=== PATIENT | female | born 1960 | race Caucasian/White ===

== ENCOUNTER 2020-05-09 17:09 | Emergency (ER) | payer SELFPAY ==
[2020-05-09] MEDS ORDERED: Sodium Chloride 0.9% 10 ML Syringe FLUSH PRN (17:11)
[2020-05-09] MEDS ORDERED: Sodium Chloride 0.9% 2.5 ML Syringe FLUSH PRN (17:11)
[2020-05-09] MEDS ORDERED: Sodium Chloride 0.9% 1,000 ML IV ONE (17:13)
[2020-05-09] MEDS ORDERED: fentaNYL 50 MCG/ML SDV IVPUSH ONE ×2 (17:22→19:29)
--- NOTE | 2020-05-09 17:23 | EDM.PDOC ---
ED HPI GENERAL MEDICAL PROBLEM - General Chief Complaint: Cardiovascular Problem Stated Complaint: EMS ARRIVAL - CHEST PAIN Time Seen by Provider: 05/09/20 17:11 - History of Present Illness INITIAL COMMENTS - FREE TEXT/NARRATIVE: History of present illness: 59-year-old female brought by EMS due to chest pain. Apparently the patient just had her car repaired when the industrial equipment mechanic noticed that she started to somewhat slumped over and complained of chest pain. She had no loss of consciousness or lack of responsiveness. They called 911. When EMS arrived she was hypotensive in the 60s systolic and bradycardic in the 40s. They gave her atropine and IV fluids and her heart rate and blood pressure improved to the 120s and heart rate in the 70s. Patient denies any history of cardiac disease or IN. Patient was diaphoretic for EMS and is still diaphoretic. She is moaning in pain and appears in distress. She appears pale. She reports the pain is radiating from the chest into the back and abdomen. No fever, chills or difficulty breathing/chest pain. Patient is reporting that she is in pain and would like to stand up. Review of systems: As per history of present illness and below otherwise all systems reviewed and negative. Past medical history: As per history of present illness and as reviewed below otherwise noncontributory. Surgical history: As per history of present illness and as reviewed below otherwise noncontributory. Social history: No reported history of drug or alcohol abuse. Family history: As per history of present illness and as reviewed below otherwise noncontributory. Physical exam: General: Pale, diaphoretic, in distress due to pain HEENT: Atraumatic, normocephalic, mucous membranes moist Neck: supple, nontender, trachea midline. Lungs: No respiratory distress. Heart: RRR in the 60s. Abdomen: Soft, nondistended, nontender. Pelvis: Stable nontender. Extremities: Atraumatic. Neurovascularly unremarkable. Neuro: Pale, diaphoretic, appears occasionally confused and less responsive but does then return to clear orientation and alertness and able to answer questions. Neuro Exam nonfocal. Psych: Appears anxious Skin: Diaphoretic and pale Diagnostics: [] Therapeutics: [] MDM: No prior cardiac history complaining of chest pain, abdominal pain and back pain. EKG with T inversion in inferior leads, no STEMI. Concern for possible dissection given patient's varying locations of pain. Patient taken immediately to CT. Impression: [] Plan: [] Definitive disposition and diagnosis as appropriate pending reevaluation and review of above. Back Pain Score (Numeric/FACES): 10 - Related Data Allergies Allergy/AdvReac Type Severity Reaction Status Date / Time Dairy Products Allergy Unknown Other Verified 05/09/20 18:28 ED ROS GENERAL - Review of Systems Review Of Systems: See Below (See dictation) ED EXAM, GENERAL - Physical Exam Exam: See Below (See dictation) EKG INTERPRETATION EKG Interpretation Comments: EKG performed today at 5:10 PM, rate 65, sinus, left atrial enlargement, lead 3 T inversions. No STEMI. Interpreted by me. Course - Vital Signs Last Recorded V/S: Last Vital Signs Temp 97.8 F 05/09/20 17:24 Pulse 59 L 05/09/20 19:05 Resp 22 H 05/09/20 17:24 BP 139/98 H 05/09/20 19:05 Pulse Ox 97 05/09/20 19:05 - Orders/Labs/Meds Orders: Active Orders 24 hr Category Date Time Status EKG Documentation Completion [RC] STAT Care 05/09/20 17:12 Active Ang Abdomen [CT] Stat Exams 05/09/20 17:12 Taken Ang Chest [CT] Stat Exams 05/09/20 17:12 Taken Sodium Chloride 0.9% [Saline Flush] Med 05/09/20 17:11 Active 10 ml FLUSH ASDIRECTED PRN Sodium Chloride 0.9% [Saline Flush] Med 05/09/20 17:11 Active 2.5 ml FLUSH ASDIRECTED PRN Saline Lock Insert [OM.PC] Stat Oth 05/09/20 17:11 Ordered Medication Orders Sodium Chloride (Saline Flush) 10 ml FLUSH ASDIRECTED PRN PRN Reason: Keep Vein Open Sodium Chloride (Saline Flush) 2.5 ml FLUSH ASDIRECTED PRN PRN Reason: Keep Vein Open Labs: Laboratory Tests 05/09/20 05/09/20 05/09/20 Range/Units 17:10 17:10 17:10 WBC 10.23 (4.0-11.0) K/uL RBC 5.28 (4.30-5.90) M/uL Hgb 16.0 (12.0-16.0) g/dL Hct 47.5 H (36.0-46.0) % MCV 90.0 (80.0-98.0) fL MCH 30.3 (27.0-32.0) pg MCHC 33.7 (31.0-37.0) g/dL RDW Std Deviation 46.6 (28.0-62.0) fl RDW Coeff of Jaki 14 (11.0-15.0) % Plt Count 210 (150-400) K/uL MPV 10.80 (7.40-12.00) fL Neut % (Auto) 48.9 (48.0-80.0) % Lymph % (Auto) 41.1 H (16.0-40.0) % [place] % (Auto) 8.3 (0.0-15.0) % Eos % (Auto) 1.4 (0.0-7.0) % Baso % (Auto) 0.3 (0.0-1.5) % Neut # (Auto) 5.0 (1.4-5.7) K/uL Lymph # (Auto) 4.2 H (0.6-2.4) K/uL [place] # (Auto) 0.9 H (0.0-0.8) K/uL Eos # (Auto) 0.1 (0.0-0.7) K/uL Baso # (Auto) 0.0 (0.0-0.1) K/uL Nucleated RBC % 0.0 /100WBC Nucleated RBCs # 0 K/uL INR APTT (18.6-31.3) SEC Sodium 143 (136-145) mmol/L Potassium 3.6 (3.5-5.1) mmol/L Chloride 106 (98-107) mmol/L Carbon Dioxide 19.3 L (21.0-32.0) mmol/L BUN 15 (7.0-18.0) mg/dL Creatinine 1.0 (0.6-1.0) mg/dL Est Cr Clr Drug Dosing 56.71 mL/min Estimated GFR (MDRD) 56.7 ml/min Glucose 114 H (74-106) mg/dL Calcium 8.9 (8.5-10.1) mg/dL Total Bilirubin 0.3 (0.2-1.0) mg/dL AST 22 (15-37) IU/L ALT 21 (14-63) IU/L Alkaline Phosphatase 82 (46-116) U/L Troponin I < 0.050 (0.000-0.056) ng/mL B-Natriuretic Peptide 15 (<100) PG/ML Total Protein 7.2 (6.4-8.2) g/dL Albumin 4.0 (3.4-5.0) g/dL Globulin 3.2 (2.6-4.0) g/dL Albumin/Globulin Ratio 1.3 (0.9-1.6) Lipase 148 (73-393) U/L Blood Type Antibody Screen 05/09/20 05/09/20 Range/Units 17:10 18:25 WBC (4.0-11.0) K/uL RBC (4.30-5.90) M/uL Hgb (12.0-16.0) g/dL Hct (36.0-46.0) % MCV (80.0-98.0) fL MCH (27.0-32.0) pg MCHC (31.0-37.0) g/dL RDW Std Deviation (28.0-62.0) fl RDW Coeff of Jaki (11.0-15.0) % Plt Count (150-400) K/uL MPV (7.40-12.00) fL Neut % (Auto) (48.0-80.0) % Lymph % (Auto) (16.0-40.0) % [place] % (Auto) (0.0-15.0) % Eos % (Auto) (0.0-7.0) % Baso % (Auto) (0.0-1.5) % Neut # (Auto) (1.4-5.7) K/uL Lymph # (Auto) (0.6-2.4) K/uL [place] # (Auto) (0.0-0.8) K/uL Eos # (Auto) (0.0-0.7) K/uL Baso # (Auto) (0.0-0.1) K/uL Nucleated RBC % /100WBC Nucleated RBCs # K/uL INR 1.01 APTT 23.6 (18.6-31.3) SEC Sodium (136-145) mmol/L Potassium (3.5-5.1) mmol/L Chloride (98-107) mmol/L Carbon Dioxide (21.0-32.0) mmol/L BUN (7.0-18.0) mg/dL Creatinine (0.6-1.0) mg/dL Est Cr Clr Drug Dosing mL/min Estimated GFR (MDRD) ml/min Glucose (74-106) mg/dL Calcium (8.5-10.1) mg/dL Total Bilirubin (0.2-1.0) mg/dL AST (15-37) IU/L ALT (14-63) IU/L Alkaline Phosphatase (46-116) U/L Troponin I (0.000-0.056) ng/mL B-Natriuretic Peptide (<100) PG/ML Total Protein (6.4-8.2) g/dL Albumin (3.4-5.0) g/dL Globulin (2.6-4.0) g/dL Albumin/Globulin Ratio (0.9-1.6) Lipase (73-393) U/L Blood Type A POSITIVE Antibody Screen NEGATIVE Meds: Medications Generic Name Dose Route Start Last Admin Trade Name Freq PRN Reason Stop Dose Admin Sodium Chloride 10 ml 05/09/20 17:11 Saline Flush FLUSH ASDIRECTED PRN Keep Vein Open Sodium Chloride 2.5 ml 05/09/20 17:11 Saline Flush FLUSH ASDIRECTED PRN Keep Vein Open Discontinued Medications Generic Name Dose Route Start Last Admin Trade Name Freq PRN Reason Stop Dose Admin Fentanyl 50 mcg 05/09/20 17:22 05/09/20 17:50 Fentanyl IVPUSH 05/09/20 17:23 50 mcg ONETIME ONE Administration Sodium Chloride 1,000 mls @ 999 mls/hr 05/09/20 17:13 05/09/20 17:51 Normal Saline IV 05/09/20 18:13 999 mls/hr .Bolus ONE Administration Iopamidol 100 ml 05/09/20 18:19 05/09/20 18:20 Isovue-370 (76%) IVPUSH 05/09/20 18:20 100 ml ONETIME STA Administration - Re-Assessments/Exams Free Text/Narrative Re-Assessment/Exam: 05/09/20 17:23 The patient is feeling marginally better. Her coloration is slightly improved. She is still in pain and reports that her back pain is severe and would like to be able to stand. However as she was very hypotensive for EMS I requested that she instead lay flat. Discussed with sow farm barn technician my concern for aortic dissection and need for immediate CT scan deferring labs at this time. 05/09/20 19:09 She was reassessed at 6 PM and 6:33 PM, during both reassessments, she did appear much improved her coloration will continue to be better and her blood pressure was stable. She was able to clarify that she developed pain in the lower sternum that radiated into the back at about the same level. I discussed with the patient concerning findings on CT scan and need for emergent transfer to facility for higher level of care. I discussed with the cardiothoracic surgery, DR Burgos at [facility], in regards to possible transfer there if the facility could accept the patient and has the adequate facilities to care for the patient. He reviewed the images , discussed with cardiac surgery and vascular surgery (DR Cloud and DR Cha), who have all reviewed the images and agree with the patient can be adequately cared for at that facility. Therefore I discussed this with the patient who agrees with this plan. I have also discussed this with the emergency department physician , Dr Lyle at [facility] who accepts the patient. Patient will be transferred via air. 05/09/20 19:28 Patient was reassessed again, she is confused about the diagnosis and was concerned about traveling. I discussed with her the life-threatening nature of aortic aneurysms, potential for aortic dissection, and concern with the intramural hematoma and need for emergent transfer and cardiothoracic/vascular surgeon eval. Voiced understanding at this time again and agrees with the plan. She is still having pain. Her blood pressure is slightly elevated and she feels nauseated. Therefore she will be given pain medications and antiemetics. Departure - Departure Time of Disposition: 19:10 Disposition: DC/Tfer to Acute Hospital 02 Reason for Transfer *Q: Other (Higher level of care, requiring cardiothoracic and vascular surgery) Clinical Impression: Ascending aortic aneurysm, Intramural hematoma of thoracic aorta Referrals: PCP,None [Primary Care Provider] - Forms: ED Department Discharge Critical Care Note - Critical Care Note Total Time (mins): 35 Sepsis Event Note (ED) - Focused Exam Vital Signs: Vital Signs Temp Pulse Resp BP Pulse Ox 05/09/20 19:05 59 L 139/98 H 97 05/09/20 18:39 69 153/116 H 98 05/09/20 17:50 70 129/96 H 100 05/09/20 17:24 97.8 F 65 22 H 167/84 H 91 L - My Orders Last 24 Hours: My Active Orders 05/09/20 17:11 Sodium Chloride 0.9% [Saline Flush] 10 ml FLUSH ASDIRECTED PRN Sodium Chloride 0.9% [Saline Flush] 2.5 ml FLUSH ASDIRECTED PRN Saline Lock Insert [OM.PC] Stat 05/09/20 17:12 EKG Documentation Completion [RC] STAT Ang Abdomen [CT] Stat Ang Chest [CT] Stat - Assessment/Plan Last 24 Hours: My Active Orders 05/09/20 17:11 Sodium Chloride 0.9% [Saline Flush] 10 ml FLUSH ASDIRECTED PRN Sodium Chloride 0.9% [Saline Flush] 2.5 ml FLUSH ASDIRECTED PRN Saline Lock Insert [OM.PC] Stat 05/09/20 17:12 EKG Documentation Completion [RC] STAT Ang Abdomen [CT] Stat Ang Chest [CT] Stat
[2020-05-09 17:45] LABS: BLOOD UREA NITROGEN,BUN 15 mg/dL (7.0-18.0); CARBON DIOXIDE,CO2 19.3 mmol/L (21.0-32.0); CHLORIDE,CL 106 mmol/L (98-107); GLUCOSE RANDOM 114 mg/dL (74-106); LIPASE 148 U/L (73-393); POTASSIUM,K 3.6 mmol/L (3.5-5.1); SODIUM,NA 143 mmol/L (136-145)
--- NOTE | 2020-05-09 17:59 | CR ---
Chest: Portable view of the chest was obtained. Comparison: No previous chest x-ray. Heart size is normal. Tortuous or aneurysmal thoracic aorta is seen. Lungs are clear with no acute parenchymal change. Bony structures shows mild endplate spurring within the spine. Impression: 1. Tortuous or aneurysmal thoracic aorta. 2. Nothing acute is otherwise seen on portable chest x-ray. Diagnostic code #2 This report was dictated in MDT
[2020-05-09] MEDS ORDERED: Iopamidol 755 Mg/ML 100 ML Bottle IVPUSH STA (18:19)
[2020-05-09] MEDS ORDERED: Ondansetron 4 MG/2 ML SDV IVPUSH ONE (19:29)
[2020-05-09] MEDS ORDERED: fentaNYL 50 MCG/ML SDV ONE (19:31)
[2020-05-09] MEDS ORDERED: Ondansetron 4 MG/2 ML SDV ONE (19:31)
--- NOTE | 2020-05-12 12:35 | CT ---
CT chest, abdomen and pelvis Technique: Multiple axial sections were obtained from from above the aortic arch inferiorly through the chest abdomen and pelvis. Intravenous contrast was given. Study performed as a CT aortogram exam. Findings: Ascending aorta is mildly aneurysmal at 3.5 cm. Descending aorta is aneurysmal at 3.9 cm with diffuse circumferential thrombus being seen throughout the aneurysm within the chest. Distal thoracic aorta has an AP dimension 3.4 cm. Aorta at the diaphragmatic hiatus is 3.2 cm. Mid abdominal aorta at the level of the renal vessels is mildly aneurysmal at 2.6 cm. Distal aorta is ectatic at 2.2 cm in AP dimension. Common iliac arteries are slightly ectatic with measurement of 1.3 cm on the right and 1.7 cm on the left. Diffuse atherosclerotic change is seen throughout the aorta. Celiac axis appears patent. Superior mesenteric artery appears patent. Left renal artery is patent. 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 Heart is mildly enlarged. Pulmonary arteries that are seen show no discrete filling defects of pulmonary embolism. Mediastinum shows no adenopathy. No hilar adenopathy is seen. Lungs are clear with no acute parenchymal change. No pleural effusions are seen. Bone window setting show nothing acute. Liver contains no focal parenchymal abnormality. Spleen appears within normal limits. Adrenal glands show no nodule. Pancreas shows no abnormality. Gallbladder contains no calcified gallstones. No retroperitoneal adenopathy or mesenteric abnormalities are seen. Small fat-containing umbilical hernia is noted. No pelvic mass or adenopathy is identified. Bone window settings shows degenerative change throughout the spine most prominent at L4-5 and L5-S1. No acute osseous finding is seen. Impression: 1. Diffuse aneurysmal dilatation of the thoracic aorta with measurements as noted above. Diffuse circumferential thrombus is seen within the thoracic aortic aneurysm. Aneurysm shows no rupture or dissection. 2. Mild aneurysmal dilatation within the mid aorta at 2.6 cm. 3. 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 Normal enhancement of the left kidney is seen with patent left renal artery. 4. Nothing acute is otherwise seen within the chest. Nothing acute is otherwise seen within the abdomen or pelvis. Diagnostic code #5 This report was dictated in MDT MTDD
== END 2020-05-09 19:55 ==
LOC: MW.ED 17:09
DX: I71.4 Abdominal aortic aneurysm, without rupture (principal); I71.01 Dissection of thoracic aorta; Z91.011 Allergy to milk products
CPT/HCPCS: 36415; 71045; 71275; 72191; 74175; 80053; 83690; 83880; 84484; 85025; 85610; 85730; 86850; 86900; 86901; 93005; 96374; 96375; 96376; 99291; J2405; J3010; J7030; Q9967

== ENCOUNTER 2021-07-19 11:25 | Inpatient (IN) | payer MEDICAID ==
[2021-07-19] MEDS ORDERED: Sodium Chloride 0.9% 2.5 ML Syringe FLUSH PRN (12:01)
[2021-07-19] MEDS ORDERED: Sodium Chloride 0.9% 10 ML Syringe FLUSH PRN (12:01)
--- NOTE | 2021-07-19 12:08 | EDM.PDOC ---
ED HPI GENERAL MEDICAL PROBLEM - General Chief Complaint: General Stated Complaint: PT FEELS VERY WEEK FOR THE LAST COUPLE DAYS Time Seen by Provider: 07/19/21 11:39 - History of Present Illness INITIAL COMMENTS - FREE TEXT/NARRATIVE: 6-year-old female presents to the emergency department with generalized weakness. She states she has been sick for about a week in duration. She states it started with significant cough and fevers and just significant weakness. Patient denies any chest pain. She has now developed some diarrhea. No abdominal pain. It is not like when she was here in April and had chest pain radiating to her back. Patient is not vaccinated. No known Covid contacts. Moderate symptoms without exacerbating or alleviating factors. No pain with urination or dysuria hips Pain Score (Numeric/FACES): 10 - Related Data Allergies Allergy/AdvReac Type Severity Reaction Status Date / Time Dairy Products Allergy Unknown Other Verified 07/19/21 11:56 Home Meds: Home Meds . [Unable to Verify Home Med List] 07/19/21 [History] Social & Family History - Family History Family Medical History: No Pertinent Family History ED ROS GENERAL - Review of Systems Review Of Systems: Comprehensive ROS is negative, except as noted in HPI. ED EXAM, GENERAL - Physical Exam Exam: See Below Free Text/Narrative:: CONSTITUTIONAL: Not well appearing. Very weak SKIN: Warm, dry, and intact without rash HENT: Normocephalic, atraumatic, PULMONARY: bilateral rales CARDIOVASCULAR: regular rate, No murmur, rubs, or gallops GASTROINTESTINAL: soft, nondistended, nontender NEUROLOGIC: normal speech, II-XII intact. light touch/5/5 power equal and symmetric in upper and lower extremities without deficit MUSCULOSKELETAL: no gross deformities, atraumatic PSYCHIATRIC: normal mood and affect #1 Interpretation Time: 12:22 EKG Interpretation Comments: 71, normal sinus rhythm, nonspecific ST/T findings Course - Vital Signs Text/Narrative:: Differential diagnosis: Covid pneumonia, CHF, viral illness, bacterial pneumonia, URI, UTI, other Patient presents as outlined above. Patient is Covid positive. Chest x-ray with infiltrates and rales on exam. Patient is significantly weak and with hypoxia less than 88% will need to bring in the hospital for continued treatment and management respiratory support. Decadron and remdesivir ordered Last Recorded V/S: Last Vital Signs Temp 37.4 C 07/19/21 11:45 Pulse 68 07/19/21 14:13 Resp 20 07/19/21 14:13 BP 115/67 07/19/21 14:13 Pulse Ox 93 L 07/19/21 14:13 - Orders/Labs/Meds Orders: Active Orders 24 hr Category Date Time Status Admission Status [Patient Status] [ADT] Stat ADT 07/19/21 13:50 Active Cardiac Monitoring [RC] . DIRECTED Care 07/19/21 12:02 Active Pulse Oximetry [RC] ASDIRECTED Care 07/19/21 12:02 Active COMPREHENSIVE METABOLIC PN,CMP [CHEM] DAILY Lab 07/20/21 14:00 Ordered COMPREHENSIVE METABOLIC PN,CMP [CHEM] DAILY Lab 07/21/21 14:00 Ordered COMPREHENSIVE METABOLIC PN,CMP [CHEM] DAILY Lab 07/22/21 14:00 Ordered COMPREHENSIVE METABOLIC PN,CMP [CHEM] DAILY Lab 07/23/21 14:00 Ordered CULTURE BLOOD [BC] Stat Lab 07/19/21 11:51 Received CULTURE BLOOD [BC] Stat Lab 07/19/21 12:34 Received UA W/LUIS ANTONIO RFLX IF INDICATED [URIN] Stat Lab 07/19/21 12:02 Ordered Sodium Chloride 0.9% [Saline Flush] Med 07/19/21 12:01 Active 10 ml FLUSH ASDIRECTED PRN Sodium Chloride 0.9% [Saline Flush] Med 07/19/21 12:01 Active 2.5 ml FLUSH ASDIRECTED PRN Blood Culture x2 Reflex Set [OM.PC] Stat Oth 07/19/21 12:02 Ordered Saline Lock Insert [OM.PC] Stat Oth 07/19/21 12:02 Ordered Medication Orders Sodium Chloride (Sodium Chloride 0.9% 10 Ml Syringe) 10 ml FLUSH ASDIRECTED PRN PRN Reason: Keep Vein Open Last Admin: 07/19/21 14:15 Dose: 10 ml Documented by: JEN Sodium Chloride (Sodium Chloride 0.9% 2.5 Ml Syringe) 2.5 ml FLUSH ASDIRECTED PRN PRN Reason: Keep Vein Open Last Admin: 07/19/21 14:14 Dose: 2.5 ml Documented by: JEN Labs: Laboratory Tests 08/22/21 08/22/21 08/22/21 Range/Units 11:51 11:51 11:51 WBC 4.58 (4.0-11.0) K/uL RBC 5.28 (4.30-5.90) M/uL Hgb 15.5 (12.0-16.0) g/dL Hct 45.3 (36.0-46.0) % MCV 85.8 (80.0-98.0) fL MCH 29.4 (27.0-32.0) pg MCHC 34.2 (31.0-37.0) g/dL RDW Std Deviation 43.4 (28.0-62.0) fl RDW Coeff of Jaki 14 (11.0-15.0) % Plt Count 147 L (150-400) K/uL MPV 11.10 (7.40-12.00) fL Neut % (Auto) 65.3 (48.0-80.0) % Lymph % (Auto) 19.7 (16.0-40.0) % [place] % (Auto) 14.8 (0.0-15.0) % Eos % (Auto) 0.0 (0.0-7.0) % Baso % (Auto) 0.2 (0.0-1.5) % Neut # (Auto) 3.0 (1.4-5.7) K/uL Lymph # (Auto) 0.9 (0.6-2.4) K/uL [place] # (Auto) 0.7 (0.0-0.8) K/uL Eos # (Auto) 0.0 (0.0-0.7) K/uL Baso # (Auto) 0.0 (0.0-0.1) K/uL Nucleated RBC % 0.0 /100WBC Nucleated RBCs # 0 K/uL INR Sodium 131 L (136-145) mmol/L Potassium 4.4 (3.5-5.1) mmol/L Chloride 96 L (98-107) mmol/L Carbon Dioxide 22.5 (21.0-32.0) mmol/L BUN 22 H (7.0-18.0) mg/dL Creatinine 1.5 H (0.6-1.0) mg/dL Est Cr Clr Drug Dosing TNP Estimated GFR (MDRD) 35.4 ml/min Glucose 102 (74-106) mg/dL Lactic Acid 1.1 (0.4-2.0) mmol/L Calcium 7.8 L (8.5-10.1) mg/dL Ferritin (8-252) ng/mL Total Bilirubin 0.4 (0.2-1.0) mg/dL AST 51 H (15-37) IU/L ALT 38 (14-63) IU/L Alkaline Phosphatase 51 (46-116) U/L Troponin I < 0.050 (0.000-0.056) ng/mL Total Protein 7.2 (6.4-8.2) g/dL Albumin 3.2 L (3.4-5.0) g/dL Globulin 4.0 (2.6-4.0) g/dL Albumin/Globulin Ratio 0.8 L (0.9-1.6) Lipase 297 (73-393) U/L SARS-CoV-2 RNA ([place]) (NEGATIVE) 07/19/21 07/19/21 07/19/21 Range/Units 11:51 11:51 11:55 WBC (4.0-11.0) K/uL RBC (4.30-5.90) M/uL Hgb (12.0-16.0) g/dL Hct (36.0-46.0) % MCV (80.0-98.0) fL MCH (27.0-32.0) pg MCHC (31.0-37.0) g/dL RDW Std Deviation (28.0-62.0) fl RDW Coeff of Jaki (11.0-15.0) % Plt Count (150-400) K/uL MPV (7.40-12.00) fL Neut % (Auto) (48.0-80.0) % Lymph % (Auto) (16.0-40.0) % [place] % (Auto) (0.0-15.0) % Eos % (Auto) (0.0-7.0) % Baso % (Auto) (0.0-1.5) % Neut # (Auto) (1.4-5.7) K/uL Lymph # (Auto) (0.6-2.4) K/uL [place] # (Auto) (0.0-0.8) K/uL Eos # (Auto) (0.0-0.7) K/uL Baso # (Auto) (0.0-0.1) K/uL Nucleated RBC % /100WBC Nucleated RBCs # K/uL INR 1.11 Sodium (136-145) mmol/L Potassium (3.5-5.1) mmol/L Chloride (98-107) mmol/L Carbon Dioxide (21.0-32.0) mmol/L BUN (7.0-18.0) mg/dL Creatinine (0.6-1.0) mg/dL Est Cr Clr Drug Dosing Estimated GFR (MDRD) ml/min Glucose (74-106) mg/dL Lactic Acid (0.4-2.0) mmol/L Calcium (8.5-10.1) mg/dL Ferritin 889 H (8-252) ng/mL Total Bilirubin (0.2-1.0) mg/dL AST (15-37) IU/L ALT (14-63) IU/L Alkaline Phosphatase (46-116) U/L Troponin I (0.000-0.056) ng/mL Total Protein (6.4-8.2) g/dL Albumin (3.4-5.0) g/dL Globulin (2.6-4.0) g/dL Albumin/Globulin Ratio (0.9-1.6) Lipase (73-393) U/L SARS-CoV-2 RNA ([place]) POSITIVE H (NEGATIVE) Meds: Medications Generic Name Dose Route Start Last Admin Trade Name Freq PRN Reason Stop Dose Admin Sodium Chloride 10 ml 07/19/21 12:01 07/19/21 14:15 Sodium Chloride 0.9% 10 Ml Syringe FLUSH 10 ml ASDIRECTED PRN Administration Keep Vein Open Sodium Chloride 2.5 ml 07/19/21 12:01 07/19/21 14:14 Sodium Chloride 0.9% 2.5 Ml Syringe FLUSH 2.5 ml ASDIRECTED PRN Administration Keep Vein Open Discontinued Medications Generic Name Dose Route Start Last Admin Trade Name Freq PRN Reason Stop Dose Admin Dexamethasone 6 mg 07/19/21 13:46 07/19/21 14:21 Dexamethasone 10 Mg/Ml Sdv IVPUSH 07/19/21 13:47 Not Given ONETIME ONE Remdesivir 200 mg/ Sodium 250 mls @ 250 mls/hr 07/19/21 13:46 07/19/21 14:21 Chloride IV 07/19/21 13:47 Not Given ONETIME ONE Departure - Departure Time of Disposition: 13:49 Disposition: Home, Self-Care 01 Condition: Fair Clinical Impression: Pneumonia due to COVID-19 virus - Discharge Information Sepsis Event Note (ED) - Evaluation Sepsis Screening Result: No Definite Risk - Focused Exam Vital Signs: Vital Signs Temp Pulse Resp BP Pulse Ox 07/19/21 14:13 68 20 115/67 93 L 07/19/21 11:45 37.4 C 60 22 H 118/61 87 L - My Orders Last 24 Hours: My Active Orders 07/19/21 11:51 CULTURE BLOOD [BC] Stat 07/19/21 12:01 Sodium Chloride 0.9% [Saline Flush] 10 ml FLUSH ASDIRECTED PRN Sodium Chloride 0.9% [Saline Flush] 2.5 ml FLUSH ASDIRECTED PRN 07/19/21 12:02 Cardiac Monitoring [RC] . DIRECTED Pulse Oximetry [RC] ASDIRECTED UA W/LUIS ANTONIO RFLX IF INDICATED [URIN] Stat Blood Culture x2 Reflex Set [OM.PC] Stat Saline Lock Insert [OM.PC] Stat 07/19/21 12:34 CULTURE BLOOD [BC] Stat 07/19/21 13:50 Admission Status [Patient Status] [ADT] Stat 07/20/21 14:00 COMPREHENSIVE METABOLIC PN,CMP [CHEM] DAILY 07/21/21 14:00 COMPREHENSIVE METABOLIC PN,CMP [CHEM] DAILY 07/22/21 14:00 COMPREHENSIVE METABOLIC PN,CMP [CHEM] DAILY 07/23/21 14:00 COMPREHENSIVE METABOLIC PN,CMP [CHEM] DAILY - Assessment/Plan Last 24 Hours: My Active Orders 07/19/21 11:51 CULTURE BLOOD [BC] Stat 07/19/21 12:01 Sodium Chloride 0.9% [Saline Flush] 10 ml FLUSH ASDIRECTED PRN Sodium Chloride 0.9% [Saline Flush] 2.5 ml FLUSH ASDIRECTED PRN 07/19/21 12:02 Cardiac Monitoring [RC] . DIRECTED Pulse Oximetry [RC] ASDIRECTED UA W/LUIS ANTONIO RFLX IF INDICATED [URIN] Stat Blood Culture x2 Reflex Set [OM.PC] Stat Saline Lock Insert [OM.PC] Stat 07/19/21 12:34 CULTURE BLOOD [BC] Stat 07/19/21 13:50 Admission Status [Patient Status] [ADT] Stat 07/20/21 14:00 COMPREHENSIVE METABOLIC PN,CMP [CHEM] DAILY 07/21/21 14:00 COMPREHENSIVE METABOLIC PN,CMP [CHEM] DAILY 07/22/21 14:00 COMPREHENSIVE METABOLIC PN,CMP [CHEM] DAILY 07/23/21 14:00 COMPREHENSIVE METABOLIC PN,CMP [CHEM] DAILY
[2021-07-19 12:25] LABS: BLOOD UREA NITROGEN,BUN 22 mg/dL (7.0-18.0); CARBON DIOXIDE,CO2 22.5 mmol/L (21.0-32.0); CHLORIDE,CL 96 mmol/L (98-107); GLUCOSE RANDOM 102 mg/dL (74-106); LIPASE 297 U/L (73-393); POTASSIUM,K 4.4 mmol/L (3.5-5.1); SODIUM,NA 131 mmol/L (136-145)
--- NOTE | 2021-07-19 13:29 | CR ---
HISTORY: Chest pain. COMPARISON: 05/09/2020. TECHNIQUE: Chest one-view portable upright. FINDINGS: There is a stent graft in the thoracic aortic arch, extending into the descending thoracic aorta. This is new from 05/09/2020. Heart size and pulmonary vasculature are within normal limits. Interstitial type opacities are present in the lower lung zones, left greater than right. Relative sparing of the left lung apex. No pneumothorax. No deep sulcus sign. Central airway is normal. There is no pleural effusion by plain film. IMPRESSION: 1. Thoracic aortic stent graft is new from previous. 2. Bilateral interstitial type opacities, which could represent interstitial pulmonary edema or viral pneumonia. Dictated by Ron Stafford MD @ 07/19/2021 1:28:[address] Ron Stafford @ Jul 19 2021 1:28PM
[2021-07-19] MEDS: Dexamethasone 10 MG/ML SDV IVPUSH ONE ×2 (14:21→16:08)
[2021-07-19] MEDS: REMDESIVIR 200 MG in Sodium Chloride 0.9% 250 ML IV ONE ×2 (14:21→16:36)
[2021-07-19] MEDS ORDERED: Dexamethasone 10 MG/ML SDV ONE (16:06)
--- NOTE | 2021-07-19 17:05 | PCM.HP.2 ---
H&P History of Present Illness - General Date of Service: 07/19/21 Admit Problem/Dx: Admission Diagnosis/Problem Admission Diagnosis/Problem Viral pneumonia - History of Present Illness Initial Comments - Free Text/Narative: 60 yo female with pmh thoracic aortic aneurysm who presented with a complaint of fevers, sinus congestion, cough and shortness of breath for eight days. Patient denies any chest pain, diarrhea or blood in stool. hips Pain Score (Numeric/FACES): 10 - Related Data Allergies/Adverse Reactions: Allergies Allergy/AdvReac Type Severity Reaction Status Date / Time Dairy Products Allergy Unknown Other Verified 07/19/21 19:00 Home Medications: Home Meds amLODIPine Besylate [Amlodipine Besylate] 10 mg PO DAILY 07/19/21 [History] Past Medical History - Past Health History Medical/Surgical History: Denies Medical/Surgical History - Infectious Disease History Infectious Disease History: Reports: Chicken Pox Social & Family History - Family History Family Medical History: No Pertinent Family History H&P Review of Systems - Review of Systems: Review Of Systems: Comprehensive ROS is negative, except as noted in HPI. Exam - Exam Exam: See Below - Vital Signs Vital Signs: Last Vital Signs Temp 38.3 C H 07/19/21 16:12 Pulse 63 07/19/21 16:12 Resp 18 07/19/21 16:12 BP 111/57 L 07/19/21 16:12 Pulse Ox 95 07/19/21 16:12 Weight: 90.718 kg - Exam General: Alert, Oriented HEENT: Mucosa Moist & [place] Lungs: Clear to Auscultation, Normal Respiratory Effort Cardiovascular: Regular Rate, Regular Rhythm GI/Abdominal Exam: Normal Bowel Sounds, Soft, Non-Tender Extremities: Non-Tender, No Pedal Edema Skin: Warm, Dry, Intact Neurological: Cranial Nerves Intact - Patient Data Lab Results Last 24 hrs: Laboratory Results - last 24 hr 07/19/21 07/19/21 07/19/21 Range/Units 11:51 11:51 11:51 WBC 4.58 (4.0-11.0) K/uL RBC 5.28 (4.30-5.90) M/uL Hgb 15.5 (12.0-16.0) g/dL Hct 45.3 (36.0-46.0) % MCV 85.8 (80.0-98.0) fL MCH 29.4 (27.0-32.0) pg MCHC 34.2 (31.0-37.0) g/dL RDW Std Deviation 43.4 (28.0-62.0) fl RDW Coeff of Jaki 14 (11.0-15.0) % Plt Count 147 L (150-400) K/uL MPV 11.10 (7.40-12.00) fL Neut % (Auto) 65.3 (48.0-80.0) % Lymph % (Auto) 19.7 (16.0-40.0) % [place] % (Auto) 14.8 (0.0-15.0) % Eos % (Auto) 0.0 (0.0-7.0) % Baso % (Auto) 0.2 (0.0-1.5) % Neut # (Auto) 3.0 (1.4-5.7) K/uL Lymph # (Auto) 0.9 (0.6-2.4) K/uL [place] # (Auto) 0.7 (0.0-0.8) K/uL Eos # (Auto) 0.0 (0.0-0.7) K/uL Baso # (Auto) 0.0 (0.0-0.1) K/uL Nucleated RBC % 0.0 /100WBC Nucleated RBCs # 0 K/uL INR Sodium 131 L (136-145) mmol/L Potassium 4.4 (3.5-5.1) mmol/L Chloride 96 L (98-107) mmol/L Carbon Dioxide 22.5 (21.0-32.0) mmol/L BUN 22 H (7.0-18.0) mg/dL Creatinine 1.5 H (0.6-1.0) mg/dL Est Cr Clr Drug Dosing TNP Estimated GFR (MDRD) 35.4 ml/min Glucose 102 (74-106) mg/dL Lactic Acid 1.1 (0.4-2.0) mmol/L Calcium 7.8 L (8.5-10.1) mg/dL Ferritin (8-252) ng/mL Total Bilirubin 0.4 (0.2-1.0) mg/dL AST 51 H (15-37) IU/L ALT 38 (14-63) IU/L Alkaline Phosphatase 51 (46-116) U/L Troponin I < 0.050 (0.000-0.056) ng/mL Total Protein 7.2 (6.4-8.2) g/dL Albumin 3.2 L (3.4-5.0) g/dL Globulin 4.0 (2.6-4.0) g/dL Albumin/Globulin Ratio 0.8 L (0.9-1.6) Lipase 297 (73-393) U/L SARS-CoV-2 RNA ([facility]) (NEGATIVE) 07/19/21 07/19/21 07/19/21 Range/Units 11:51 11:51 11:55 WBC (4.0-11.0) K/uL RBC (4.30-5.90) M/uL Hgb (12.0-16.0) g/dL Hct (36.0-46.0) % MCV (80.0-98.0) fL MCH (27.0-32.0) pg MCHC (31.0-37.0) g/dL RDW Std Deviation (28.0-62.0) fl RDW Coeff of Jaki (11.0-15.0) % Plt Count (150-400) K/uL MPV (7.40-12.00) fL Neut % (Auto) (48.0-80.0) % Lymph % (Auto) (16.0-40.0) % [place] % (Auto) (0.0-15.0) % Eos % (Auto) (0.0-7.0) % Baso % (Auto) (0.0-1.5) % Neut # (Auto) (1.4-5.7) K/uL Lymph # (Auto) (0.6-2.4) K/uL [place] # (Auto) (0.0-0.8) K/uL Eos # (Auto) (0.0-0.7) K/uL Baso # (Auto) (0.0-0.1) K/uL Nucleated RBC % /100WBC Nucleated RBCs # K/uL INR 1.11 Sodium (136-145) mmol/L Potassium (3.5-5.1) mmol/L Chloride (98-107) mmol/L Carbon Dioxide (21.0-32.0) mmol/L BUN (7.0-18.0) mg/dL Creatinine (0.6-1.0) mg/dL Est Cr Clr Drug Dosing Estimated GFR (MDRD) ml/min Glucose (74-106) mg/dL Lactic Acid (0.4-2.0) mmol/L Calcium (8.5-10.1) mg/dL Ferritin 889 H (8-252) ng/mL Total Bilirubin (0.2-1.0) mg/dL AST (15-37) IU/L ALT (14-63) IU/L Alkaline Phosphatase (46-116) U/L Troponin I (0.000-0.056) ng/mL Total Protein (6.4-8.2) g/dL Albumin (3.4-5.0) g/dL Globulin (2.6-4.0) g/dL Albumin/Globulin Ratio (0.9-1.6) Lipase (73-393) U/L SARS-CoV-2 RNA ([facility]) POSITIVE H (NEGATIVE) Result Diagrams: 07/20/21 05:42 07/20/21 05:42 Sepsis Event Note - Evaluation Sepsis Screening Result: No Definite Risk - Focused Exam Vital Signs: Vital Signs Temp Pulse Resp BP Pulse Ox 07/19/21 16:12 38.3 C H 63 18 111/57 L 95 07/19/21 15:48 66 104/59 L 95 07/19/21 14:13 68 20 115/67 93 L 07/19/21 11:45 37.4 C 60 22 H 118/61 87 L Problem List Initiated/Reviewed/Updated: Yes Orders Last 24hrs: Active Orders 24 hr Category Date Time Status Admission Status [Patient Status] [ADT] Stat ADT 07/19/21 13:50 Active Cardiac Monitoring [RC] . DIRECTED Care 07/19/21 12:02 Active Pulse Oximetry [RC] ASDIRECTED Care 07/19/21 12:02 Active COMPREHENSIVE METABOLIC PN,CMP [CHEM] DAILY Lab 07/20/21 14:00 Ordered COMPREHENSIVE METABOLIC PN,CMP [CHEM] DAILY Lab 07/21/21 14:00 Ordered COMPREHENSIVE METABOLIC PN,CMP [CHEM] DAILY Lab 07/22/21 14:00 Ordered COMPREHENSIVE METABOLIC PN,CMP [CHEM] DAILY Lab 07/23/21 14:00 Ordered CULTURE BLOOD [BC] Stat Lab 07/19/21 11:51 Received CULTURE BLOOD [BC] Stat Lab 07/19/21 12:34 Received UA W/LUIS ANTONIO RFLX IF INDICATED [URIN] Stat Lab 07/19/21 12:02 Ordered Sodium Chloride 0.9% [Saline Flush] Med 07/19/21 12:01 Active 10 ml FLUSH ASDIRECTED PRN Sodium Chloride 0.9% [Saline Flush] Med 07/19/21 12:01 Active 2.5 ml FLUSH ASDIRECTED PRN Blood Culture x2 Reflex Set [OM.PC] Stat Oth 07/19/21 12:02 Ordered Saline Lock Insert [OM.PC] Stat Oth 07/19/21 12:02 Ordered Medication Orders Sodium Chloride (Sodium Chloride 0.9% 10 Ml Syringe) 10 ml FLUSH ASDIRECTED PRN PRN Reason: Keep Vein Open Last Admin: 07/19/21 14:15 Dose: 10 ml Documented by: JEN Sodium Chloride (Sodium Chloride 0.9% 2.5 Ml Syringe) 2.5 ml FLUSH ASDIRECTED PRN PRN Reason: Keep Vein Open Last Admin: 07/19/21 14:14 Dose: 2.5 ml Documented by: JEN Assessment/Plan Comment:: 60 yo female admitted for acute hypoxic respiratory failure from COVID pneumonia. We will treat with supplemental oxygen via nasal canula and ween as tolerated We will treat with dexamethasone and Remdesivir Lovenox for DVT prophylaxis. Patient states she is DNR/DNI
[2021-07-19] MEDS ORDERED: Acetaminophen 325 MG Tab PO PRN (18:02)
[2021-07-19] MEDS ORDERED: Ondansetron 4 MG/2 ML SDV IVPUSH PRN (18:02)
[2021-07-19] MEDS: Enoxaparin 40 MG/0.4 ML Syringe SUBCUT SCH (18:49)
[2021-07-20 07:12] LABS: CARBON DIOXIDE,CO2 24.1 mmol/L (21.0-32.0); POTASSIUM,K 4.7 mmol/L (3.5-5.1)
[2021-07-20] MEDS: VANCOmycin 1.75 GM/350 ML 1.75 GM in Premix Bag 1 BAG IV SCH (09:57)
[2021-07-20] MEDS: Dexamethasone 4 MG Tab PO SCH (09:57)
[2021-07-20] MEDS: REMDESIVIR 100 MG in Sodium Chloride 0.9% 100 ML IV SCH (13:09)
--- NOTE | 2021-07-20 13:34 | PCM.PN ---
- General Info Date of Service: 07/20/21 - Review of Systems Systems Review Comment:: feeling a little better, reports cough and shortness of breath - Patient Data Vitals - Most Recent: Last Vital Signs Temp 36.8 C 07/20/21 11:49 Pulse 54 L 07/20/21 11:49 Resp 17 07/20/21 11:49 BP 125/68 07/20/21 11:49 Pulse Ox 92 L 07/20/21 11:49 Weight - Most Recent: 94.892 kg I&O - Last 24 Hours: Intake & Output 07/19/21 07/20/21 07/20/21 22:59 06:59 14:59 Intake Total 350 Output Total 500 Balance -150 Lab Results Last 24 Hours: Laboratory Results - last 24 hr 07/19/21 07/20/21 07/20/21 Range/Units 20:00 05:42 05:42 WBC 3.16 L (4.0-11.0) K/uL RBC 5.45 (4.30-5.90) M/uL Hgb 16.0 (12.0-16.0) g/dL Hct 46.9 H (36.0-46.0) % MCV 86.1 (80.0-98.0) fL MCH 29.4 (27.0-32.0) pg MCHC 34.1 (31.0-37.0) g/dL RDW Std Deviation 43.6 (28.0-62.0) fl RDW Coeff of Jaki 14 (11.0-15.0) % Plt Count 167 (150-400) K/uL MPV 12.00 (7.40-12.00) fL Neut % (Auto) 56.0 (48.0-80.0) % Lymph % (Auto) 30.1 (16.0-40.0) % [place] % (Auto) 13.6 (0.0-15.0) % Eos % (Auto) 0.0 (0.0-7.0) % Baso % (Auto) 0.3 (0.0-1.5) % Neut # (Auto) 1.8 (1.4-5.7) K/uL Lymph # (Auto) 1.0 (0.6-2.4) K/uL [place] # (Auto) 0.4 (0.0-0.8) K/uL Eos # (Auto) 0.0 (0.0-0.7) K/uL Baso # (Auto) 0.0 (0.0-0.1) K/uL Nucleated RBC % 0.0 /100WBC Nucleated RBCs # 0 K/uL Sodium 136 (136-145) mmol/L Potassium 4.7 (3.5-5.1) mmol/L Chloride 102 (98-107) mmol/L Carbon Dioxide 24.1 (21.0-32.0) mmol/L BUN 27 H (7.0-18.0) mg/dL Creatinine 1.4 H (0.6-1.0) mg/dL Est Cr Clr Drug Dosing 32.25 mL/min Estimated GFR (MDRD) 38.4 ml/min Glucose 124 H (74-106) mg/dL Calcium 8.1 L (8.5-10.1) mg/dL Total Bilirubin 0.4 (0.2-1.0) mg/dL AST 51 H (15-37) IU/L ALT 35 (14-63) IU/L Alkaline Phosphatase 52 (46-116) U/L Total Protein 7.0 (6.4-8.2) g/dL Albumin 2.9 L (3.4-5.0) g/dL Globulin 4.1 H (2.6-4.0) g/dL Albumin/Globulin Ratio 0.7 L (0.9-1.6) Urine Color YELLOW Urine Appearance CLEAR Urine pH 6.0 (5.0-8.0) Ur Specific [place] 1.020 (1.001-1.035) Urine Protein TRACE H (NEGATIVE) mg/dL Urine Glucose (UA) NEGATIVE (NEGATIVE) mg/dL Urine Ketones TRACE H (NEGATIVE) mg/dL Urine Occult Blood TRACE-INTACT H (NEGATIVE) Urine Nitrite NEGATIVE (NEGATIVE) Urine Bilirubin NEGATIVE (NEGATIVE) Urine Urobilinogen 0.2 (<2.0) EU/dL Ur Leukocyte Esterase NEGATIVE (NEGATIVE) Urine RBC 0-1 (0-2/HPF) Urine WBC 0-1 (0-5/HPF) Ur Epithelial Cells FEW (NONE-FEW) Urine Bacteria RARE (NEGATIVE) Jm Results Last 24 Hours: Microbiology 07/19/21 12:34 Aerobic Blood Culture - Preliminary Blood - Venous - Lab Draw NO GROWTH AFTER 1 DAY Anaerobic Blood Culture - Preliminary NO GROWTH AFTER 1 DAY 07/19/21 11:51 Aerobic Blood Culture - Preliminary Blood - Venous NO GROWTH AFTER 1 DAY Anaerobic Blood Culture - Preliminary Med Orders - Current: Current Medications Acetaminophen (Acetaminophen 325 Mg Tab) 650 mg PO Q4H PRN PRN Reason: Pain (Mild 1-3)/fever Dexamethasone (Dexamethasone 4 Mg Tab) 6 mg PO DAILY [facility] Last Admin: 07/20/21 09:57 Dose: 6 mg Documented by: Enoxaparin Sodium (Enoxaparin 40 Mg/0.4 Ml Syringe) 40 mg SUBCUT Q24H [facility] Last Admin: 07/19/21 18:49 Dose: 40 mg Documented by: Remdesivir 100 mg/ Sodium (Chloride) 100 mls @ 100 mls/hr IV Q24H [facility] Stop: 07/23/21 13:59 Last Admin: 07/20/21 13:09 Dose: 100 mls/hr Documented by: Vancomycin HCl 1.75 gm/ Premix 350 mls @ 233.333 mls/hr IV Q24H [facility] Last Admin: 07/20/21 09:57 Dose: 233.333 mls/hr Documented by: Ondansetron HCl (Ondansetron 4 Mg/2 Ml Sdv) 4 mg IVPUSH Q4H PRN PRN Reason: Nausea Sodium Chloride (Sodium Chloride 0.9% 10 Ml Syringe) 10 ml FLUSH ASDIRECTED PRN PRN Reason: Keep Vein Open Last Admin: 07/19/21 14:15 Dose: 10 ml Documented by: Sodium Chloride (Sodium Chloride 0.9% 2.5 Ml Syringe) 2.5 ml FLUSH ASDIRECTED PRN PRN Reason: Keep Vein Open Last Admin: 07/19/21 14:14 Dose: 2.5 ml Documented by: Vancomycin HCl (Pharmacy To Dose - Vancomycin) 1 dose .XX ASDIRECTED [facility] Discontinued Medications Dexamethasone (Dexamethasone 10 Mg/Ml Sdv) 6 mg IVPUSH ONETIME ONE Stop: 07/19/21 13:47 Last Admin: 07/19/21 16:08 Dose: 6 mg Documented by: Dexamethasone (Dexamethasone 10 Mg/Ml Sdv) Confirm Administered Dose 10 mg .RICKY COOL-MED ONE Stop: 07/19/21 16:07 Last Admin: 07/19/21 16:33 Dose: Not Given Documented by: Remdesivir 200 mg/ Sodium (Chloride) 250 mls @ 250 mls/hr IV ONETIME ONE Stop: 07/19/21 13:47 Last Admin: 07/19/21 16:36 Dose: 250 mls/hr Documented by: - Exam General: Alert, Oriented Neck: Supple Lungs: Clear to Auscultation, Normal Respiratory Effort Cardiovascular: Regular Rate, Regular Rhythm GI/Abdominal Exam: Normal Bowel Sounds, Soft, Non-Tender Extremities: Non-Tender, No Pedal Edema Skin: Warm, Dry, Intact Neurological: No New Focal Deficit - Patient Data Lab Results Last 24 hrs: Laboratory Results - last 24 hr 07/19/21 07/20/21 07/20/21 Range/Units 20:00 05:42 05:42 WBC 3.16 L (4.0-11.0) K/uL RBC 5.45 (4.30-5.90) M/uL Hgb 16.0 (12.0-16.0) g/dL Hct 46.9 H (36.0-46.0) % MCV 86.1 (80.0-98.0) fL MCH 29.4 (27.0-32.0) pg MCHC 34.1 (31.0-37.0) g/dL RDW Std Deviation 43.6 (28.0-62.0) fl RDW Coeff of Jaki 14 (11.0-15.0) % Plt Count 167 (150-400) K/uL MPV 12.00 (7.40-12.00) fL Neut % (Auto) 56.0 (48.0-80.0) % Lymph % (Auto) 30.1 (16.0-40.0) % [place] % (Auto) 13.6 (0.0-15.0) % Eos % (Auto) 0.0 (0.0-7.0) % Baso % (Auto) 0.3 (0.0-1.5) % Neut # (Auto) 1.8 (1.4-5.7) K/uL Lymph # (Auto) 1.0 (0.6-2.4) K/uL [place] # (Auto) 0.4 (0.0-0.8) K/uL Eos # (Auto) 0.0 (0.0-0.7) K/uL Baso # (Auto) 0.0 (0.0-0.1) K/uL Nucleated RBC % 0.0 /100WBC Nucleated RBCs # 0 K/uL Sodium 136 (136-145) mmol/L Potassium 4.7 (3.5-5.1) mmol/L Chloride 102 (98-107) mmol/L Carbon Dioxide 24.1 (21.0-32.0) mmol/L BUN 27 H (7.0-18.0) mg/dL Creatinine 1.4 H (0.6-1.0) mg/dL Est Cr Clr Drug Dosing 32.25 mL/min Estimated GFR (MDRD) 38.4 ml/min Glucose 124 H (74-106) mg/dL Calcium 8.1 L (8.5-10.1) mg/dL Total Bilirubin 0.4 (0.2-1.0) mg/dL AST 51 H (15-37) IU/L ALT 35 (14-63) IU/L Alkaline Phosphatase 52 (46-116) U/L Total Protein 7.0 (6.4-8.2) g/dL Albumin 2.9 L (3.4-5.0) g/dL Globulin 4.1 H (2.6-4.0) g/dL Albumin/Globulin Ratio 0.7 L (0.9-1.6) Urine Color YELLOW Urine Appearance CLEAR Urine pH 6.0 (5.0-8.0) Ur Specific [place] 1.020 (1.001-1.035) Urine Protein TRACE H (NEGATIVE) mg/dL Urine Glucose (UA) NEGATIVE (NEGATIVE) mg/dL Urine Ketones TRACE H (NEGATIVE) mg/dL Urine Occult Blood TRACE-INTACT H (NEGATIVE) Urine Nitrite NEGATIVE (NEGATIVE) Urine Bilirubin NEGATIVE (NEGATIVE) Urine Urobilinogen 0.2 (<2.0) EU/dL Ur Leukocyte Esterase NEGATIVE (NEGATIVE) Urine RBC 0-1 (0-2/HPF) Urine WBC 0-1 (0-5/HPF) Ur Epithelial Cells FEW (NONE-FEW) Urine Bacteria RARE (NEGATIVE) Result Diagrams: 07/20/21 05:42 07/20/21 05:42 Jm Results Last 24 hrs: Microbiology 07/19/21 12:34 Aerobic Blood Culture - Preliminary Blood - Venous - Lab Draw NO GROWTH AFTER 1 DAY Anaerobic Blood Culture - Preliminary NO GROWTH AFTER 1 DAY 07/19/21 11:51 Aerobic Blood Culture - Preliminary Blood - Venous NO GROWTH AFTER 1 DAY Anaerobic Blood Culture - Preliminary Sepsis Event Note - Evaluation Sepsis Screening Result: Possible Sepsis Risk - Focused Exam Vital Signs: Vital Signs Temp Pulse Resp BP Pulse Ox 07/20/21 11:49 36.8 C 54 L 17 125/68 92 L 07/20/21 08:48 35.6 C L 49 L 16 107/56 L 93 L 07/20/21 04:00 35.7 C L 58 L 20 113/55 L 95 - Problem List Review Problem List Initiated/Reviewed/Updated: Yes - My Orders Last 24 Hours: My Active Orders 07/19/21 18:00 Enoxaparin [Lovenox] 40 mg SUBCUT Q24H 07/19/21 18:02 Oxygen Therapy [RC] PRN Up ad Irene [RC] ASDIRECTED VTE/DVT Education [RC] PER UNIT ROUTINE Vital Signs [RC] Q4H Acetaminophen [TylenoL] 650 mg PO Q4H PRN Ondansetron [Zofran] 4 mg IVPUSH Q4H PRN Sequential Compression Device [OM.PC] Per Unit Routine Resuscitation Status Routine 07/19/21 18:03 Antiembolic Devices [RC] PER UNIT ROUTINE 07/20/21 09:00 dexAMETHasone 6 mg PO DAILY 07/20/21 09:30 VANCOmycin 1.75 GM/350 ML 1.75 gm Premix Bag 1 bag IV Q24H 07/20/21 13:00 Remdesivir 100 mg Sodium Chloride 0.9% [Normal Saline] 100 ml IV Q24H 07/21/21 05:11 COMPREHENSIVE METABOLIC PN,CMP [CHEM] AM 07/22/21 05:11 COMPREHENSIVE METABOLIC PN,CMP [CHEM] AM 07/23/21 05:11 COMPREHENSIVE METABOLIC PN,CMP [CHEM] AM 07/23/21 09:00 VANCOMYCIN TROUGH [CHEM] Routine 07/24/21 05:11 COMPREHENSIVE METABOLIC PN,CMP [CHEM] AM - Plan Plan:: 60 yo female admitted for acute hypoxic respiratory failure from COVID pneumonia. On 2.5 L supplemental oxygen via nasal canula and will ween as tolerated We will continue dexamethasone and Remdesivir 1/4 blood cultures growing gram positive cocci, so have started vancomycin and awaiting culture results. Lovenox for DVT prophylaxis.
[2021-07-20] MEDS: Enoxaparin 40 MG/0.4 ML Syringe SUBCUT SCH (18:13)
[2021-07-21 07:29] LABS: CARBON DIOXIDE,CO2 20.9 mmol/L (21.0-32.0); POTASSIUM,K 4.3 mmol/L (3.5-5.1)
[2021-07-21] MEDS: Dexamethasone 4 MG Tab PO SCH (10:22)
[2021-07-21] MEDS: VANCOmycin 1.75 GM/350 ML 1.75 GM in Premix Bag 1 BAG IV SCH (10:25)
--- NOTE | 2021-07-21 13:18 | PCM.PN ---
- General Info Date of Service: 07/21/21 - Review of Systems Systems Review Comment:: feeling better, apatite returning, reports fatigue - Patient Data Vitals - Most Recent: Last Vital Signs Temp 36.0 C L 07/21/21 10:33 Pulse 50 L 07/21/21 10:33 Resp 16 07/21/21 10:33 BP 118/67 07/21/21 10:33 Pulse Ox 91 L 07/21/21 10:33 Weight - Most Recent: 94.892 kg I&O - Last 24 Hours: Intake & Output 07/20/21 07/21/21 07/21/21 22:59 06:59 14:59 Intake Total 1310 600 Output Total 400 300 Balance 910 300 Lab Results Last 24 Hours: Laboratory Results - last 24 hr 07/21/21 Range/Units 06:18 Sodium 138 (136-145) mmol/L Potassium 4.3 (3.5-5.1) mmol/L Chloride 105 (98-107) mmol/L Carbon Dioxide 20.9 L (21.0-32.0) mmol/L BUN 33 H (7.0-18.0) mg/dL Creatinine 1.3 H (0.6-1.0) mg/dL Est Cr Clr Drug Dosing 34.73 mL/min Estimated GFR (MDRD) 41.8 ml/min Glucose 140 H (74-106) mg/dL Calcium 8.0 L (8.5-10.1) mg/dL Total Bilirubin 0.4 (0.2-1.0) mg/dL AST 32 (15-37) IU/L ALT 37 (14-63) IU/L Alkaline Phosphatase 50 (46-116) U/L Total Protein 6.5 (6.4-8.2) g/dL Albumin 2.8 L (3.4-5.0) g/dL Globulin 3.7 (2.6-4.0) g/dL Albumin/Globulin Ratio 0.8 L (0.9-1.6) Jm Results Last 24 Hours: Microbiology 07/19/21 12:34 Aerobic Blood Culture - Final Blood - Venous - Lab Draw Anaerobic Blood Culture - Preliminary NO GROWTH AFTER 2 DAYS 07/19/21 11:51 Aerobic Blood Culture - Preliminary Blood - Venous NO GROWTH AFTER 2 DAYS Anaerobic Blood Culture - Preliminary 07/19/21 11:51 Blood Culture Identification Panel - Preliminary Blood Staphylococcus Coagulase Neg 07/19/21 11:51 Bacteria Detection (PCR) - Final Blood Med Orders - Current: Current Medications Acetaminophen (Acetaminophen 325 Mg Tab) 650 mg PO Q4H PRN PRN Reason: Pain (Mild 1-3)/fever Dexamethasone (Dexamethasone 4 Mg Tab) 6 mg PO DAILY [facility] Last Admin: 07/21/21 10:22 Dose: 6 mg Documented by: Enoxaparin Sodium (Enoxaparin 40 Mg/0.4 Ml Syringe) 40 mg SUBCUT Q24H [facility] Last Admin: 07/20/21 18:13 Dose: 40 mg Documented by: Remdesivir 100 mg/ Sodium (Chloride) 100 mls @ 100 mls/hr IV Q24H [facility] Stop: 07/23/21 13:59 Last Admin: 07/20/21 13:09 Dose: 100 mls/hr Documented by: Vancomycin HCl 1.75 gm/ Premix 350 mls @ 233.333 mls/hr IV Q24H [facility] Last Admin: 07/21/21 10:25 Dose: 233.333 mls/hr Documented by: Ondansetron HCl (Ondansetron 4 Mg/2 Ml Sdv) 4 mg IVPUSH Q4H PRN PRN Reason: Nausea Sodium Chloride (Sodium Chloride 0.9% 10 Ml Syringe) 10 ml FLUSH ASDIRECTED PRN PRN Reason: Keep Vein Open Last Admin: 07/19/21 14:15 Dose: 10 ml Documented by: Sodium Chloride (Sodium Chloride 0.9% 2.5 Ml Syringe) 2.5 ml FLUSH ASDIRECTED PRN PRN Reason: Keep Vein Open Last Admin: 07/19/21 14:14 Dose: 2.5 ml Documented by: Vancomycin HCl (Pharmacy To Dose - Vancomycin) 1 dose .XX ASDIRECTED [facility] Discontinued Medications Dexamethasone (Dexamethasone 10 Mg/Ml Sdv) 6 mg IVPUSH ONETIME ONE Stop: 07/19/21 13:47 Last Admin: 07/19/21 16:08 Dose: 6 mg Documented by: Dexamethasone (Dexamethasone 10 Mg/Ml Sdv) Confirm Administered Dose 10 mg .ROUTE .STK-MED ONE Stop: 07/19/21 16:07 Last Admin: 07/19/21 16:33 Dose: Not Given Documented by: Remdesivir 200 mg/ Sodium (Chloride) 250 mls @ 250 mls/hr IV ONETIME ONE Stop: 07/19/21 13:47 Last Admin: 07/19/21 16:36 Dose: 250 mls/hr Documented by: - Exam General: Alert, Oriented Neck: Supple Lungs: Clear to Auscultation, Normal Respiratory Effort Cardiovascular: Regular Rate, Regular Rhythm GI/Abdominal Exam: Soft, Non-Tender, No Distention Extremities: Non-Tender, No Pedal Edema Skin: Warm, Dry, Intact Neurological: No New Focal Deficit - Patient Data Lab Results Last 24 hrs: Laboratory Results - last 24 hr 07/21/21 Range/Units 06:18 Sodium 138 (136-145) mmol/L Potassium 4.3 (3.5-5.1) mmol/L Chloride 105 (98-107) mmol/L Carbon Dioxide 20.9 L (21.0-32.0) mmol/L BUN 33 H (7.0-18.0) mg/dL Creatinine 1.3 H (0.6-1.0) mg/dL Est Cr Clr Drug Dosing 34.73 mL/min Estimated GFR (MDRD) 41.8 ml/min Glucose 140 H (74-106) mg/dL Calcium 8.0 L (8.5-10.1) mg/dL Total Bilirubin 0.4 (0.2-1.0) mg/dL AST 32 (15-37) IU/L ALT 37 (14-63) IU/L Alkaline Phosphatase 50 (46-116) U/L Total Protein 6.5 (6.4-8.2) g/dL Albumin 2.8 L (3.4-5.0) g/dL Globulin 3.7 (2.6-4.0) g/dL Albumin/Globulin Ratio 0.8 L (0.9-1.6) Result Diagrams: 07/20/21 05:42 07/21/21 06:18 Jm Results Last 24 hrs: Microbiology 07/19/21 12:34 Aerobic Blood Culture - Final Blood - Venous - Lab Draw Anaerobic Blood Culture - Preliminary NO GROWTH AFTER 2 DAYS 07/19/21 11:51 Aerobic Blood Culture - Preliminary Blood - Venous NO GROWTH AFTER 2 DAYS Anaerobic Blood Culture - Preliminary 07/19/21 11:51 Blood Culture Identification Panel - Preliminary Blood Staphylococcus Coagulase Neg 07/19/21 11:51 Bacteria Detection (PCR) - Final Blood Sepsis Event Note - Evaluation Sepsis Screening Result: Possible Sepsis Risk - Focused Exam Vital Signs: Vital Signs Temp Pulse Resp BP Pulse Ox 07/21/21 10:33 36.0 C L 50 L 16 118/67 91 L 07/21/21 05:19 36.2 C 54 L 16 124/71 92 L - Problem List Review Problem List Initiated/Reviewed/Updated: Yes - My Orders Last 24 Hours: My Active Orders 07/20/21 13:00 Remdesivir 100 mg Sodium Chloride 0.9% [Normal Saline] 100 ml IV Q24H 07/21/21 12:57 CBC WITH AUTO DIFF [HEME] Routine 07/22/21 05:11 CBC WITH AUTO DIFF [HEME] AM COMPREHENSIVE METABOLIC PN,CMP [CHEM] AM 07/23/21 05:11 COMPREHENSIVE METABOLIC PN,CMP [CHEM] AM 07/23/21 09:00 VANCOMYCIN TROUGH [CHEM] Routine 07/24/21 05:11 COMPREHENSIVE METABOLIC PN,CMP [CHEM] AM - Plan Plan:: 60 yo female admitted for acute hypoxic respiratory failure from COVID pneumonia. On 0.5 L supplemental oxygen via nasal canula and will ween as tolerated We will continue dexamethasone and Remdesivir 1/4 blood cultures PCR coag negative staph Lovenox for DVT prophylaxis. Dispo: likely home tomorrow.
[2021-07-21] MEDS: REMDESIVIR 100 MG in Sodium Chloride 0.9% 100 ML IV SCH (13:21)
[2021-07-21] MEDS: Enoxaparin 40 MG/0.4 ML Syringe SUBCUT SCH (17:36)
[2021-07-22 06:55] LABS: CARBON DIOXIDE,CO2 21.1 mmol/L (21.0-32.0); POTASSIUM,K 4.4 mmol/L (3.5-5.1)
[2021-07-22] MEDS: Dexamethasone 4 MG Tab PO SCH (08:27)
[2021-07-22] MEDS: VANCOmycin 1.75 GM/350 ML 1.75 GM in Premix Bag 1 BAG IV SCH (08:31)
--- NOTE | 2021-07-22 11:51 | PCM.DCSUM1 ---
Discharge Summary - Discharge Data Discharge Date: 07/22/21 Discharge Disposition: Home, Self-Care 01 Condition: Stable - Referral to Home Health Primary Care Physician: Janna Awad DO - Patient Summary/Data Hospital Course: 60 yo female with pmh thoracic aortic aneurysm who presented with a complaint of fevers, sinus congestion, cough and shortness of breath for eight days. On admission she was requiring 2 liters of oxygen to keep sats above 90%. She tested positive for Covid. Her chest x-ray reported bilateral infiltrates. She was treated with Remdesivir and dexamethasone for four days. Today she is requesting discharge home. She is sating 92% on room air and 86% while walking. We offered her to keep her in hospital to continue to monitor her oxygen as well as home oxygen but patient refused both. She asked about starting a new blood pressure medications as she had stopped taking amlodipine at home due to concerns of allergy. During her stay her blood pressure was well controlled without any medications so she was instructed to follow up with Dr. Brown. - Patient Instructions Diet: Regular Diet as Tolerated Activity: As Tolerated Other/Special Instructions: Report symptoms of worsening shortness of breath, fevers, or cough. Follow up with Dr. Brown. Stop taking amlodipine and check your blood pressure regularly. - Discharge Plan Patient Handouts: COVID-19, Symptoms of Coronavirus - CDC (01/19/2021), Infection Prevention in the Home, COVID-19: Quarantine vs. Isolation - CDC (11/13/2020) Referrals: Janna Awad DO [Primary Care Provider] - 08/05/21 9:45 am - Discharge Summary/Plan Comment DC Time >30 min.: No Total # of Minutes for Discharge Time: 20 - Patient Data Vitals - Most Recent: Last Vital Signs Temp 36.1 C 07/22/21 06:10 Pulse 56 L 07/22/21 06:10 Resp 18 07/22/21 02:08 BP 116/62 07/22/21 06:10 Pulse Ox 93 L 07/22/21 06:10 Weight - Most Recent: 94.892 kg I&O - Last 24 hours: Intake & Output 07/21/21 07/22/21 07/22/21 22:59 06:59 14:59 Intake Total 640 Balance 640 Lab Results - Last 24 hrs: Laboratory Results - last 24 hr 07/21/21 07/22/21 07/22/21 Range/Units 13:20 06:05 06:05 WBC 10.99 8.68 (4.0-11.0) K/uL RBC 5.11 5.09 (4.30-5.90) M/uL Hgb 14.9 14.9 (12.0-16.0) g/dL Hct 43.7 43.4 (36.0-46.0) % MCV 85.5 85.3 (80.0-98.0) fL MCH 29.2 29.3 (27.0-32.0) pg MCHC 34.1 34.3 (31.0-37.0) g/dL RDW Std Deviation 43.8 44.0 (28.0-62.0) fl RDW Coeff of Jaki 14 14 (11.0-15.0) % Plt Count 199 232 (150-400) K/uL MPV 11.20 11.90 (7.40-12.00) fL Neut % (Auto) 79.1 (48.0-80.0) % Lymph % (Auto) 10.4 L (16.0-40.0) % Posey % (Auto) 10.3 (0.0-15.0) % Eos % (Auto) 0.0 (0.0-7.0) % Baso % (Auto) 0.2 (0.0-1.5) % Neut # (Auto) 8.7 H (1.4-5.7) K/uL Lymph # (Auto) 1.1 (0.6-2.4) K/uL Posey # (Auto) 1.1 H (0.0-0.8) K/uL Eos # (Auto) 0.0 (0.0-0.7) K/uL Baso # (Auto) 0.0 (0.0-0.1) K/uL Add Manual Diff YES Neutrophils % (Manual) 75 (48.0-80.0) % Lymphocytes % (Manual) 15 L (16.0-40.0) % Monocytes % (Manual) 10 (0.0-15.0) % Nucleated RBC % 0.0 0.0 /100WBC Absolute Seg Neuts 6.5 H (1.4-5.7) Lymphocytes # (Manual) 1.3 (0.6-2.4) Monocytes # (Manual) 0.9 H (0.0-0.8) Nucleated RBCs # 0 0 K/uL Sodium 141 (136-145) mmol/L Potassium 4.4 (3.5-5.1) mmol/L Chloride 109 H (98-107) mmol/L Carbon Dioxide 21.1 (21.0-32.0) mmol/L BUN 28 H (7.0-18.0) mg/dL Creatinine 1.1 H (0.6-1.0) mg/dL Est Cr Clr Drug Dosing 41.04 mL/min Estimated GFR (MDRD) 50.7 ml/min Glucose 141 H (74-106) mg/dL Calcium 7.7 L (8.5-10.1) mg/dL Total Bilirubin 0.4 (0.2-1.0) mg/dL AST 24 (15-37) IU/L ALT 34 (14-63) IU/L Alkaline Phosphatase 46 (46-116) U/L Total Protein 6.0 L (6.4-8.2) g/dL Albumin 2.6 L (3.4-5.0) g/dL Globulin 3.4 (2.6-4.0) g/dL Albumin/Globulin Ratio 0.8 L (0.9-1.6) LUIS ANTONIO Results - Last 24 hrs: Microbiology 07/19/21 12:34 Blood Culture Identification Panel - Preliminary Blood Gram Positive Cocci In Clustrs 07/19/21 12:34 Aerobic Blood Culture - Final Blood - Venous - Lab Draw Anaerobic Blood Culture - Preliminary NO GROWTH AFTER 2 DAYS 07/19/21 11:51 Aerobic Blood Culture - Preliminary Blood - Venous NO GROWTH AFTER 2 DAYS Anaerobic Blood Culture - Preliminary 07/19/21 11:51 Blood Culture Identification Panel - Preliminary Blood Staphylococcus Coagulase Neg Med Orders - Current: Current Medications Acetaminophen (Acetaminophen 325 Mg Tab) 650 mg PO Q4H PRN PRN Reason: Pain (Mild 1-3)/fever Dexamethasone (Dexamethasone 4 Mg Tab) 6 mg PO DAILY CHAN Last Admin: 07/22/21 08:27 Dose: 6 mg Documented by: Enoxaparin Sodium (Enoxaparin 40 Mg/0.4 Ml Syringe) 40 mg SUBCUT Q24H [facility] Last Admin: 07/21/21 17:36 Dose: 40 mg Documented by: Remdesivir 100 mg/ Sodium (Chloride) 100 mls @ 100 mls/hr IV Q24H [facility] Stop: 07/23/21 13:59 Last Admin: 07/21/21 13:21 Dose: 100 mls/hr Documented by: Vancomycin HCl 1.75 gm/ Premix 350 mls @ 233.333 mls/hr IV Q24H [facility] Last Admin: 07/22/21 08:31 Dose: 233.333 mls/hr Documented by: Ondansetron HCl (Ondansetron 4 Mg/2 Ml Sdv) 4 mg IVPUSH Q4H PRN PRN Reason: Nausea Sodium Chloride (Sodium Chloride 0.9% 10 Ml Syringe) 10 ml FLUSH ASDIRECTED PRN PRN Reason: Keep Vein Open Last Admin: 07/19/21 14:15 Dose: 10 ml Documented by: Sodium Chloride (Sodium Chloride 0.9% 2.5 Ml Syringe) 2.5 ml FLUSH ASDIRECTED PRN PRN Reason: Keep Vein Open Last Admin: 07/19/21 14:14 Dose: 2.5 ml Documented by: Vancomycin HCl (Pharmacy To Dose - Vancomycin) 1 dose .XX ASDIRECTED [facility] Discontinued Medications Dexamethasone (Dexamethasone 10 Mg/Ml Sdv) 6 mg IVPUSH ONETIME ONE Stop: 07/19/21 13:47 Last Admin: 07/19/21 16:08 Dose: 6 mg Documented by: Dexamethasone (Dexamethasone 10 Mg/Ml Sdv) Confirm Administered Dose 10 mg .ROUTE .STK-MED ONE Stop: 07/19/21 16:07 Last Admin: 07/19/21 16:33 Dose: Not Given Documented by: Remdesivir 200 mg/ Sodium (Chloride) 250 mls @ 250 mls/hr IV ONETIME ONE Stop: 07/19/21 13:47 Last Admin: 07/19/21 16:36 Dose: 250 mls/hr Documented by:
[2021-07-22] MEDS: REMDESIVIR 100 MG in Sodium Chloride 0.9% 100 ML IV SCH (12:49)
== END 2021-07-22 16:45 | disposition home or self-care (01) | DRG 177 ==
LOC: MW.ED 11:25 → MW.MS 14:30
PROVIDERS: ADMIT Internal Medicine; ATTEND Internal Medicine
PROC: 8E0ZXY6 Isolation (ICD-10-PCS; principal; 2021-07-19)
PROC: XW033E5 Introduction of Remdesivir Anti-infective into Peripheral Vein, Percutaneous Approach, New Technology Group 5 (ICD-10-PCS; 2021-07-19)
PROC: XW033F5 Introduction of Other New Technology Therapeutic Substance into Peripheral Vein, Percutaneous Approach, New Technology Group 5 (ICD-10-PCS; 2021-07-19)
DX: U07.1 COVID-19 (principal); J12.82 Pneumonia due to coronavirus disease 2019; J96.01 Acute respiratory failure with hypoxia; Z66 Do not resuscitate
CPT/HCPCS: 36415; 71045; 71045-26; 80053; 81001; 82728; 83605; 83690; 84484; 85025; 85610; 87040; 87077; 87150; 87186; 93005; 93010; 99284; 99285-25; J1100; J1650; J3370; J7050; J8540; U0002

== ENCOUNTER 2023-04-20 22:26 | Emergency (ER) | payer MEDICAID ==
[2023-04-20 23:11] LABS: BASOPHILS PERCENT AUTO 0.3 % (0.0-1.5); EOSINOPHILS ABSOLUTE AUTO 0.1 K/uL (0.0-0.7); EOSINOPHILS PERCENT AUTO 0.9 % (0.0-7.0); HEMATOCRIT 43.7 % (36.0-46.0); HEMOGLOBIN 14.6 g/dL (12.0-16.0); LYMPHOCYTES ABSOLUTE AUTO 2.1 K/uL (0.6-2.4); MEAN CORPUSCULAR HEMOGLOBIN 29.4 pg (27.0-32.0); MEAN CORPUSCULAR HGB CONC 33.4 g/dL (31.0-37.0); MEAN CORPUSCULAR VOLUME 88.1 fL (80.0-98.0); MONOCYTES ABSOLUTE AUTO 1.2 K/uL (0.0-0.8); MONOCYTES PERCENT AUTO 10.9 % (0.0-15.0); NEUTROPHILS ABSOLUTE AUTO 7.3 K/uL (1.4-5.7); NEUTROPHILS PERCENT AUTO 67.9 % (48.0-80.0); NRBC ABSOLUTE 0 K/uL; RED BLOOD CELL COUNT 4.96 M/uL (4.30-5.90); WHITE BLOOD CELL COUNT,WBC 10.67 K/uL (4.0-11.0)
[2023-04-20 23:18] LABS: APPEARANCE,URINE CLEAR; BILIRUBIN,URINE NEGATIVE (NEGATIVE); COLOR,URINE YELLOW; GLUCOSE,URINE NEGATIVE (NEGATIVE); KETONES,URINE NEGATIVE (NEGATIVE); LEUKOCYTE ESTERASE,URINE TRACE (NEGATIVE); NITRITE,URINE NEGATIVE (NEGATIVE); OCCULT BLOOD,URINE NEGATIVE (NEGATIVE); PH,URINE 5.5 (5.0-8.0); PROTEIN,URINE NEGATIVE (NEGATIVE); UROBILINOGEN,URINE 0.2 EU/dL (<2.0)
[2023-04-20 23:33] LABS: BACTERIA,URINE FEW (NEGATIVE); EPITHELIAL CELLS,URINE FEW (NONE-FEW); MUCUS,URINE LIGHT (NONE-MOD); RBC,URINE 0-2 (0-2/HPF)
[2023-04-20 23:42] LABS: ALANINE AMINOTRANSFERASE,ALT 29 IU/L (14-63); ALBUMIN 3.7 g/dL (3.4-5.0); ALKALINE PHOSPHATASE 93 U/L (46-116); ASPARTATE AMNIOTRANSFERASE,AST 22 IU/L (15-37); BILIRUBIN TOTAL 0.6 mg/dL (0.2-1.0); BLOOD UREA NITROGEN,BUN 30 mg/dL (7.0-18.0); CALCIUM 8.7 mg/dL (8.5-10.1); CARBON DIOXIDE,CO2 25.3 mmol/L (21.0-32.0); CHLORIDE,CL 105 mmol/L (98-107); CREATININE 1.5 mg/dL (0.6-1.0); GLUCOSE RANDOM 106 mg/dL (74-106); POTASSIUM,K 3.8 mmol/L (3.5-5.1); PROTEIN TOTAL,TP 7.5 g/dL (6.4-8.2); SODIUM,NA 140 mmol/L (136-145)
[2023-04-20 23:47] LABS: ESTIMATED GFR 39 mL/min (>60)
[2023-04-21 00:07] LABS: PLATELET COUNT,PLT 252 K/uL (150-400)
[2023-04-21] MEDS ORDERED: Sodium Chloride 0.9% 1,000 ML IV ONE (01:21)
== END 2023-04-21 02:19 | disposition home or self-care (01) ==
LOC: MW.ED 22:26
DX: R20.2 Paresthesia of skin (principal); I10 Essential (primary) hypertension; Z91.011 Allergy to milk products; Z95.5 Presence of coronary angioplasty implant and graft
CPT/HCPCS: 36415; 70450; 71046; 80053; 81001; 84484; 85025; 93005; 96360; 99284; J7030; 93010; 99283

== ENCOUNTER 2023-08-31 00:38 | Emergency (ER) | payer MEDICAID ==
[2023-08-31 01:24] LABS: BASOPHILS PERCENT AUTO 0.4 % (0.0-1.5); EOSINOPHILS ABSOLUTE AUTO 0.2 K/uL (0.0-0.7); EOSINOPHILS PERCENT AUTO 2.1 % (0.0-7.0); HEMATOCRIT 44.9 % (36.0-46.0); HEMOGLOBIN 14.5 g/dL (12.0-16.0); LYMPHOCYTES ABSOLUTE AUTO 2.2 K/uL (0.6-2.4); LYMPHOCYTES PERCENT AUTO 25.5 % (16.0-40.0); MEAN CORPUSCULAR HEMOGLOBIN 28.9 pg (27.0-32.0); MEAN CORPUSCULAR HGB CONC 32.3 g/dL (31.0-37.0); MEAN CORPUSCULAR VOLUME 89.4 fL (80.0-98.0); MONOCYTES ABSOLUTE AUTO 1.1 K/uL (0.0-0.8); MONOCYTES PERCENT AUTO 12.3 % (0.0-15.0); NEUTROPHILS ABSOLUTE AUTO 5.1 K/uL (1.4-5.7); NEUTROPHILS PERCENT AUTO 59.7 % (48.0-80.0); PLATELET COUNT,PLT 242 K/uL (150-400); RED BLOOD CELL COUNT 5.02 M/uL (4.30-5.90); WHITE BLOOD CELL COUNT,WBC 8.54 K/uL (4.0-11.0)
[2023-08-31 02:18] LABS: ALANINE AMINOTRANSFERASE,ALT 22 IU/L (14-63); ALBUMIN 3.8 g/dL (3.4-5.0); ALKALINE PHOSPHATASE 91 U/L (46-116); ASPARTATE AMNIOTRANSFERASE,AST 23 IU/L (15-37); BILIRUBIN TOTAL 0.4 mg/dL (0.2-1.0); BLOOD UREA NITROGEN,BUN 16 mg/dL (7.0-18.0); CALCIUM 9.3 mg/dL (8.5-10.1); CARBON DIOXIDE,CO2 26.3 mmol/L (21.0-32.0); CHLORIDE,CL 104 mmol/L (98-107); CREATININE 1.2 mg/dL (0.6-1.0); GLUCOSE RANDOM 99 mg/dL (74-106); LIPASE 42 U/L (16-77); MAGNESIUM 2.4 mg/dL (1.8-2.4); PROTEIN TOTAL,TP 7.7 g/dL (6.4-8.2); SODIUM,NA 141 mmol/L (136-145); TSH ULTRASENSITIVE 17.87 uIU/mL (0.36-3.74)
[2023-08-31 02:19] LABS: ESTIMATED GFR 51 mL/min (>60)
[2023-08-31] MEDS ORDERED: Aluminum Hydroxide/Magnesium Hydroxide/Simethicone XS Susp 30 ML Cup PO ONE (02:28)
== END 2023-08-31 04:18 | disposition home or self-care (01) ==
LOC: MW.ED 00:38
DX: E03.8 Other specified hypothyroidism (principal); I10 Essential (primary) hypertension; Z79.899 Other long term (current) drug therapy; Z91.011 Allergy to milk products
CPT/HCPCS: 36415; 71045; 71045-26; 80053; 83690; 83735; 84439; 84443; 84484; 85025; 93005; 93010; 99282; 99284

== ENCOUNTER 2024-02-14 13:54 | Emergency (ER) | payer MEDICAID ==
[2024-02-14 14:30] LABS: BASOPHILS ABSOLUTE AUTO 0.04 K/uL (0.00-0.20); BASOPHILS PERCENT AUTO 0.5 % (0.0-1.0); EOSINOPHILS ABSOLUTE AUTO 0.21 K/uL (0.00-0.45); EOSINOPHILS PERCENT AUTO 2.5 % (0.0-6.0); HEMATOCRIT 46.6 % (37.0-47.0); HEMOGLOBIN 15.2 g/dL (12.0-16.0); IMMATURE GRAN ABSOLUTE AUTO 0.03 K/uL (0.00-0.05); IMMATURE GRAN PERCENT AUTO 0.4 % (0.0-0.4); LYMPHOCYTES ABSOLUTE AUTO 2.07 K/uL (1.00-4.80); LYMPHOCYTES PERCENT AUTO 24.9 % (24.0-44.0); MEAN CORPUSCULAR HEMOGLOBIN 29.3 pg (28.0-32.0); MEAN CORPUSCULAR HGB CONC 32.6 g/dL (32.0-36.0); MEAN CORPUSCULAR VOLUME 89.8 fL (83.0-99.0); MEAN PLATELET VOLUME 10.9 fL (9.4-12.3); MONOCYTES ABSOLUTE AUTO 0.83 K/uL (0.00-0.80); NEUTROPHILS ABSOLUTE AUTO 5.13 K/uL (1.80-7.70); NEUTROPHILS PERCENT AUTO 61.7 % (41.0-71.0); PLATELET COUNT,PLT 241 K/uL (150-400); RED BLOOD CELL COUNT 5.19 M/uL (4.10-5.30); WHITE BLOOD CELL COUNT,WBC 8.31 K/uL (3.9-11.3)
[2024-02-14] MEDS: Sodium Chloride 0.9% 10 ML Syringe FLUSH PRN (14:37)
[2024-02-14] MEDS: Sodium Chloride 0.9% 2.5 ML Syringe FLUSH PRN (14:37)
[2024-02-14 15:03] LABS: BILIRUBIN,URINE NEGATIVE (NEGATIVE); COLOR,URINE YELLOW; GLUCOSE,URINE NEGATIVE (NEGATIVE); KETONES,URINE NEGATIVE (NEGATIVE); LEUKOCYTE ESTERASE,URINE SMALL (NEGATIVE); NITRITE,URINE NEGATIVE (NEGATIVE); OCCULT BLOOD,URINE NEGATIVE (NEGATIVE); PH,URINE 6.5 (5.0-8.0); PROTEIN,URINE NEGATIVE (NEGATIVE); UROBILINOGEN,URINE 0.2 EU/dL (<2.0)
[2024-02-14 15:08] LABS: INR 1.03 (0.86-1.11)
[2024-02-14 15:12] LABS: APPEARANCE,URINE SLT CLOUDY
[2024-02-14 15:18] LABS: BACTERIA,URINE FEW (NEGATIVE); EPITHELIAL CELLS,URINE FEW (NONE-FEW); RBC,URINE 0-2 (0-2/HPF)
[2024-02-14 15:20] LABS: A/G RATIO 0.9 (0.9-1.6); ALBUMIN 3.6 g/dL (3.4-5.0); CALCIUM 8.9 mg/dL (8.5-10.1); CARBON DIOXIDE,CO2 28.7 mmol/L (21.0-32.0); CREATININE 1.4 mg/dL (0.6-1.0); EST CRCL DRUG DOSING (CG) 31.04 mL/min; MAGNESIUM 2.2 mg/dL (1.8-2.4); POTASSIUM,K 3.8 mmol/L (3.5-5.1); PROTEIN TOTAL,TP 7.7 g/dL (6.4-8.2)
== END 2024-02-14 17:25 | disposition home or self-care (01) ==
LOC: MW.ED 13:54
DX: R23.2 Flushing (principal); I10 Essential (primary) hypertension; Z91.011 Allergy to milk products; Z75.8 Other problems related to medical facilities and other health care
CPT/HCPCS: 36415; 71045; 80053; 81001; 83690; 83735; 83880; 84484; 85025; 85610; 87086; 93005; 99284; J3490; 93010; 99282

== ENCOUNTER 2024-10-16 16:10 | Emergency (ER) | payer MEDICAID ==
[2024-10-16 16:52] LABS: BASOPHILS ABSOLUTE AUTO 0.03 K/uL (0.00-0.20); BASOPHILS PERCENT AUTO 0.5 % (0.0-1.0); EOSINOPHILS ABSOLUTE AUTO 0.06 K/uL (0.00-0.45); EOSINOPHILS PERCENT AUTO 0.9 % (0.0-6.0); HEMATOCRIT 46.7 % (37.0-47.0); HEMOGLOBIN 15.1 g/dL (12.0-16.0); IMMATURE GRAN ABSOLUTE AUTO 0.01 K/uL (0.00-0.05); IMMATURE GRAN PERCENT AUTO 0.2 % (0.0-0.4); LYMPHOCYTES ABSOLUTE AUTO 1.29 K/uL (1.00-4.80); LYMPHOCYTES PERCENT AUTO 20.1 % (24.0-44.0); MEAN CORPUSCULAR HEMOGLOBIN 28.7 pg (28.0-32.0); MEAN CORPUSCULAR HGB CONC 32.3 g/dL (32.0-36.0); MEAN CORPUSCULAR VOLUME 88.6 fL (83.0-99.0); MEAN PLATELET VOLUME 10.5 fL (9.4-12.3); MONOCYTES ABSOLUTE AUTO 0.67 K/uL (0.00-0.80); MONOCYTES PERCENT AUTO 10.4 % (0.0-8.0); NEUTROPHILS ABSOLUTE AUTO 4.37 K/uL (1.80-7.70); NEUTROPHILS PERCENT AUTO 67.9 % (41.0-71.0); PLATELET COUNT,PLT 248 K/uL (150-400); RED BLOOD CELL COUNT 5.27 M/uL (4.10-5.30); WHITE BLOOD CELL COUNT,WBC 6.43 K/uL (3.9-11.3)
[2024-10-16 17:29] LABS: A/G RATIO 1.1 (0.9-1.6); ALANINE AMINOTRANSFERASE,ALT 34 IU/L (14-63); ALBUMIN 3.9 g/dL (3.4-5.0); ALKALINE PHOSPHATASE 93 U/L (46-116); ASPARTATE AMNIOTRANSFERASE,AST 29 IU/L (15-37); BILIRUBIN TOTAL 0.6 mg/dL (0.2-1.0); BLOOD UREA NITROGEN,BUN 13 mg/dL (7.0-18.0); CALCIUM 9.1 mg/dL (8.5-10.1); CARBON DIOXIDE,CO2 27.1 mmol/L (21.0-32.0); CHLORIDE,CL 103 mmol/L (98-107); CREATININE 1.1 mg/dL (0.6-1.0); EST CRCL DRUG DOSING (CG) 40.86 mL/min; ESTIMATED GFR 56 mL/min (>60); GLUCOSE RANDOM 110 mg/dL (74-106); LIPASE 38 U/L (16-77); MAGNESIUM 2.3 mg/dL (1.8-2.4); POTASSIUM,K 3.8 mmol/L (3.5-5.1); PROTEIN TOTAL,TP 7.6 g/dL (6.4-8.2); SODIUM,NA 139 mmol/L (136-145)
== END 2024-10-16 18:51 | disposition home or self-care (01) ==
LOC: MW.ED 16:10
DX: R07.9 Chest pain, unspecified (principal); I10 Essential (primary) hypertension; I25.10 Atherosclerotic heart disease of native coronary artery without angina pectoris; Z75.8 Other problems related to medical facilities and other health care; Z79.899 Other long term (current) drug therapy; Z91.011 Allergy to milk products
CPT/HCPCS: 71046; 71046-26; 80053; 83690; 83735; 84484; 85025; 87428-QW; 93005; 93010; 99284; 99285

== ENCOUNTER 2025-11-08 22:34 | Emergency (ER) | payer SELFPAY ==
[2025-11-08] MEDS ORDERED: Sodium Chloride 0.9% 10 ML Syringe FLUSH PRN (22:48)
[2025-11-08] MEDS ORDERED: Sodium Chloride 0.9% 2.5 ML Syringe FLUSH PRN (22:48)
[2025-11-08 23:01] LABS: BASOPHILS ABSOLUTE AUTO 0.04 K/uL (0.00-0.20); BASOPHILS PERCENT AUTO 0.4 % (0.0-1.0); EOSINOPHILS ABSOLUTE AUTO 0.13 K/uL (0.00-0.45); EOSINOPHILS PERCENT AUTO 1.4 % (0.0-6.0); IMMATURE GRAN ABSOLUTE AUTO 0.02 K/uL (0.00-0.05); IMMATURE GRAN PERCENT AUTO 0.2 % (0.0-0.4); LYMPHOCYTES ABSOLUTE AUTO 1.90 K/uL (1.00-4.80); LYMPHOCYTES PERCENT AUTO 20.6 % (24.0-44.0); MEAN PLATELET VOLUME 10.9 fL (9.4-12.3); MONOCYTES ABSOLUTE AUTO 0.91 K/uL (0.00-0.80); MONOCYTES PERCENT AUTO 9.8 % (0.0-8.0); NEUTROPHILS ABSOLUTE AUTO 6.24 K/uL (1.80-7.70); NEUTROPHILS PERCENT AUTO 67.6 % (41.0-71.0); NRBC ABSOLUTE 0.00 K/uL (0.00-0.02); NRBC PERCENT 0.0 /100WBC (0.0-0.2); PLATELET COUNT,PLT 224 K/uL (150-400); RED BLOOD CELL COUNT 4.97 M/uL (4.10-5.30); WHITE BLOOD CELL COUNT,WBC 9.24 K/uL (3.9-11.3)
[2025-11-08 23:36] LABS: A/G RATIO 1.1 (0.9-1.6); ALANINE AMINOTRANSFERASE,ALT 20 IU/L (14-63); ASPARTATE AMNIOTRANSFERASE,AST 22 IU/L (15-37); BILIRUBIN TOTAL 0.5 mg/dL (0.2-1.0); BLOOD UREA NITROGEN,BUN 22 mg/dL (7.0-18.0); CARBON DIOXIDE,CO2 27.8 mmol/L (21.0-32.0); CHLORIDE,CL 102 mmol/L (98-107); CREATININE 1.4 mg/dL (0.6-1.0); GLUCOSE RANDOM 105 mg/dL (74-106); POTASSIUM,K 4.0 mmol/L (3.5-5.1); PROTEIN TOTAL,TP 7.4 g/dL (6.4-8.2); SODIUM,NA 139 mmol/L (136-145)
[2025-11-08 23:53] LABS: ESTIMATED GFR 42 mL/min (>60)
== END 2025-11-09 00:49 | disposition home or self-care (01) ==
LOC: MW.ED 22:34
DX: I10 Essential (primary) hypertension (principal); Z91.0110 Allergy to milk products, unspecified; Z79.890 Hormone replacement therapy
CPT/HCPCS: 36415; 71045; 80053; 84484; 85025; 93005; 99285; A9270; 99283